=== PATIENT | female | born 1965 | race African-American/Black ===

== ENCOUNTER 2017-01-25 08:42 | Inpatient (IN) | payer OTHER ==
[2017-01-25 11:49] VITALS: BMI 24.2
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
[2017-01-25] MEDS ORDERED: guaiFENesin/D-METHORPHAN HB 10 ML UNIT-DOSE CUPS PO PRN (13:13)
[2017-01-25] MEDS ORDERED: ACETAMINOPHEN 325 MG TABLET (FP) PO PRN (13:13)
[2017-01-25] MEDS ORDERED: chlordiazePOXIDE HCL 25 MG CAPSULE PO PRN (13:13)
[2017-01-25] MEDS ORDERED: hydrOXYzine PAMOATE 50 MG CAPSULE (FP) PO PRN (13:13)
[2017-01-25] MEDS ORDERED: MAGNESIUM HYDROX 2400MG/30ML ORAL SUSPENSION 30 ML CUP PO PRN (13:13)
[2017-01-25] MEDS ORDERED: MAGNESIUM CITRATE 300 ML BOTTLE PO PRN (13:13)
[2017-01-25] MEDS ORDERED: diphenhydrAMINE HCL 50 MG CAPSULE PO PRN (13:13)
[2017-01-25] MEDS ORDERED: IBUPROFEN 400 MG TABLET (FP) PO PRN (13:13)
[2017-01-25] MEDS ORDERED: LOPERAMIDE HCL 2 MG CAPSULE PO PRN (13:13)
[2017-01-25] MEDS ORDERED: P-EPHED 60MG/TRIPROLIDI 2.5MG TABLET PO PRN (13:13)
[2017-01-25] MEDS ORDERED: MENTHOL/PHENOL 1 EACH UD MM PRN (13:13)
[2017-01-25] MEDS ORDERED: MAG HYDROX/AL HYDROX/SIMETH 30 ML UNIT-DOSE CUP PO PRN (13:13)
[2017-01-25] MEDS ORDERED: ALBUTEROL SO4 6.7 GM HFA INHALER IH PRN (13:16)
[2017-01-25] MEDS ORDERED: NAPROXEN 500 MG TABLET (FP) PO PRN (13:16)
[2017-01-25] MEDS ORDERED: ONDANSETRON *ODT* 4 MG TABLET SL PRN (13:18)
[2017-01-25] MEDS ORDERED: chlordiazePOXIDE HCL 25 MG CAPSULE PO ONE (14:04)
[2017-01-25] MEDS ORDERED: TRIMETHOBENZAMIDE HCL 200MG/2ML INJ IM ONE (14:06)
[2017-01-25] MEDS: chlordiazePOXIDE HCL 25 MG CAPSULE PO SCH ×2 (18:45→22:12)
[2017-01-25 20:57] LABS: URINE APPEARANCE CLEAR; URINE BILIRUBIN NEGATIVE (NEGATIVE); URINE COLOR YELLOW; URINE GLUCOSE (UA) NEGATIVE (NEGATIVE); URINE KETONE TRACE (NEGATIVE); URINE LEUK ESTERASE NEGATIVE (NEGATIVE); URINE NITRITE NEGATIVE (NEGATIVE); URINE UROBILINOGEN NEGATIVE E.U./dl (0.2-1.0)
[2017-01-25 21:06] LABS: URINE BLOOD 1+ (NEGATIVE); URINE PROTEIN 1+ (NEGATIVE)
[2017-01-25 21:14] LABS: URINE HYALINE CAST 3 /lpf; URINE RBC <1 /hpf (0-3); URINE WBC 3 /hpf (3-5)
[2017-01-25] MEDS: THIAMINE HCL 100 MG TABLET (FP) PO SCH (22:12)
[2017-01-26] MEDS: chlordiazePOXIDE HCL 25 MG CAPSULE PO SCH ×4 (05:35→22:21)
--- NOTE | 2017-01-26 09:23 | EKG ---
Test Reason : Blood Pressure : / mmHG Vent. Rate : 108 BPM Atrial Rate : 108 BPM P-R Int : 130 ms QRS Dur : 078 ms QT Int : 348 ms P-R-T Axes : 073 065 061 degrees QTc Int : 466 ms SINUS TACHYCARDIA RIGHT ATRIAL ENLARGEMENT SEPTAL INFARCT , AGE UNDETERMINED ABNORMAL ECG NO PREVIOUS ECGS AVAILABLE Confirmed by DENISA SCHNEIDER MD ([id number]) on 01/26/2017 9:23:05 AM Referred By: Derick Garcia Confirmed By:DENISA SCHNEIDER MD
[2017-01-26 09:50] LABS: MCH 34.6 pg (25.7-33.7); MCHC 34.3 g/dl (32.0-36.0); MEAN CELL VOLUME 100.9 fl (80-96); MEAN PLT VOLUME 8.3 fl (7.5-11.1); PLATELET COUNT 309 K/MM3 (134-434); RDW 13.1 % (11.6-15.6); WHITE BLOOD COUNT 4.9 K/mm3 (4.0-10.0)
--- NOTE | 2017-01-26 09:59 | PN ---
S CIWA - CIWA Score Nausea/Vomitin Muscle Tremors: 3 Anxiety: 3 Agitation: 3 Paroxysmal Sweats: 1-Minimal Palms Moist Orientation: 0-Oriented Tacttile Disturbances: 1-Very Mild Itch/Numbness Auditory Disturbances: 1-Very Mild Visual Disturbances: 1-Very Mild Sensitivity Headache: 2-Mild CIWA-Ar Total Score: 18 BHS Progress Note (SOAP) Subjective: ALERT,IRRITABLE,ANXIOUS,INTERRUPTED TREMOR,PAIN IN THE BODY AND BACK Objective: 01/26/17 09:57 Vital Signs Temperature 99.0 F 01/26/17 09:39 Pulse Rate 116 H 01/26/17 09:39 Respiratory Rate 16 01/26/17 09:39 Blood Pressure 116/77 01/26/17 09:39 O2 Sat by Pulse Oximetry (%) EKG SINUS TACHYCARDIA 107/MIN Laboratory Last Values Urine Color Yellow 01/25/17 14:00 Urine Appearance Clear 01/25/17 14:00 Urine pH 5.0 (5.0-8.0) D 01/25/17 14:00 Ur Specific [place] 1.013 (1.001-1.035) 01/25/17 14:00 Urine Protein 1+ (NEGATIVE) H 01/25/17 14:00 Urine Glucose (UA) Negative (NEGATIVE) 01/25/17 14:00 Urine Ketones Trace (NEGATIVE) H 01/25/17 14:00 Urine Blood 1+ (NEGATIVE) H 01/25/17 14:00 Urine Nitrite Negative (NEGATIVE) 01/25/17 14:00 Urine Bilirubin Negative (NEGATIVE) 01/25/17 14:00 Urine Urobilinogen Negative E.U./dl (0.2-1.0) 01/25/17 14:00 Ur Leukocyte Esterase Negative (NEGATIVE) 01/25/17 14:00 Urine RBC <1 /hpf (0-3) 01/25/17 14:00 Urine WBC 3 /hpf (3-5) 01/25/17 14:00 Ur Epithelial Cells Few /hpf (FEW) 01/25/17 14:00 Hyaline Casts 3 /lpf 01/25/17 14:00 LABS PENDING NO CHEST PAIN,NO SOB,NO DIZZINESS Assessment: 01/26/17 09:58 WITHDRAWAL SYMPTOM Plan: CONTINUE DETOX
[2017-01-26] MEDS: PANTOPRAZOLE 20 MG TABLET (FP) PO SCH (10:11)
[2017-01-26] MEDS: PRENATAL VITAMINS W/ FOLIC ACID TABLET (FP) PO SCH (10:11)
[2017-01-26] MEDS: NICOTINE 21 MG/24 HOURS TOPICAL PATCH TD SCH (10:12)
[2017-01-26 10:17] LABS: ALBUMIN 4.4 g/dl (3.4-5.0); ANION GAP 16 (8-16); CALCIUM 9.4 mg/dL (8.5-10.1); CO2 27 mmol/L (21-32); GLUCOSE,RANDOM 68 mg/dL (74-106); SGOT/AST 109 U/L (15-37); SGPT/ALT 48 U/L (12-78)
[2017-01-26 10:21] LABS: ALK PHOS 180 U/L (45-117); BILIRUBIN,TOTAL 0.8 mg/dL (0.2-1.0); COCKROFT - GAULT 100.9715; CREATININE 0.7 mg/dL (0.55-1.02); TOT PROT 8.2 g/dl (6.4-8.2)
--- NOTE | 2017-01-26 15:53 | CONSULT ---
[facility] Psychiatric Consult - Data Date of interview: 01/26/17 Admission source: [facility] Identifying data: Readmission to [facility] for this 51 y/o AA female seeking detox treatment for alcohol,cocaine and marijuana dependence.Patient is ,a mother of one,homeless,unemployed and supported on SSI benefits. Substance Abuse History: - Smoking Cessation. Smoking history: Current every day smoker. Have you smoked in the past 12 months: Yes. Aproximately how many cigarettes per day: 10. Cigars Per Day: 0. Hx Chewing Tobacco Use: No. Initiated information on smoking cessation: Yes. 'Breaking Loose' booklet given : 01/25/17. - Substance & Tx. History. Hx Alcohol Use: Yes. Hx Substance Use : Yes. Substance Use Type: Alcohol, Cocaine, Marijuana. - Substances Abused. Alcohol. Route: Oral. Frequency: Daily. Amount used: 10-15 BEERS. Age of first use: 10. Date of Last Use: 01/25/17. Crack. Route: Smoking. Frequency: Daily. Amount used: $50. Age of first use: 20. Date of Last Use: 01/24/17. Marijuana/Hashish. Route: Smoking. Frequency: 1-2 times per week. Amount used: 1 BLUNT. Age of first use: 12. Date of Last Use: . Confirmed by patient. Medical History: Emphysema,COPD,osteoarthritis,GERD,hypercholesterolemia,and a history of orthosurgery in 2001 (fracture of both ankles due to a fall).Patient has an additional history of surgery for fracture of right mandible (2009). Psychiatric History: History of multiple psychiatric hospitalizations ([facility]).Diagnosed with Schizophrenia.Prescribed risperdal 0.5 mg/day + seroquel 300 mg/hs + zoloft 150 mg/day (confirmed with pharmacist @ [facility] at [phone];last filled script was on 12/14/16) .Ms Mcdonnell used to be followed at the [facility] clinic.She is currently expecting re-assignment to another clinician.Remote history of suicide attempt via self-mutilation.Off her psychotroipc medications over one week (ran out of supply).Eager to resume medications. Physical/Sexual Abuse/Trauma History: Patient denies. Additional Comment: Urine Drug Screen Results: THC-Marijuana, HILARIO-Cocaine.Noted. Mental Status Exam - Mental Status Exam Alert and Oriented to: Time, Place, Person Cognitive Function: Good Patient Appearance: Well Groomed Mood: Anxious, Apprehensive, Hopeful Affect: Mood Congruent Patient Behavior: Fatigued, Appropriate, Cooperative Speech Pattern: Clear, Appropriate Voice Loudness: Normal Thought Process: Goal Oriented Thought Disorder: Not Present Hallucinations: Denies Suicidal Ideation: Denies Homicidal Ideation: Denies Insight/Judgement: Fair Sleep: Poorly, Difficulty falling asleep Appetite: Good Gait/Station: Other (needs a cane for ambulation.Heavy limp) Psychiatric Findings - Problem List ([place] 1, 2,3) (1) Alcohol dependence with uncomplicated withdrawal Current Visit: Yes Status: Acute (2) Nicotine dependence Current Visit: Yes Status: Acute Qualifiers: Nicotine product type: cigarettes Substance use status: uncomplicated Qualified Code(s): F17.210 - Nicotine dependence, cigarettes, uncomplicated (3) Cocaine dependence Current Visit: Yes Status: Acute (4) Schizophrenia Current Visit: Yes Status: Chronic (5) COPD (chronic obstructive pulmonary disease) Current Visit: Yes Status: Chronic Qualifiers: COPD type: unspecified COPD Qualified Code(s): J44.9 - Chronic obstructive pulmonary disease, unspecified (6) GERD (gastroesophageal reflux disease) Current Visit: Yes Status: Chronic Qualifiers: Esophagitis presence: without esophagitis Qualified Code(s): K21.9 - Gastro-esophageal reflux disease without esophagitis (7) Insomnia Current Visit: Yes Status: Acute - Initial Treatment Plan Initial Treatment Plan: Psychoeducation.Detoxification.Medications resumed : seroquel 200 mg po hs (reduced) + risperdal 0.5 mg po daily + zoloft 100 mgpo daily.Side effects/benefits of each medication are discussed with patient.Made aware of risk of EPS (akathisia,akinesia,dystonias,dyskinesias),metabolic syndrome,galactorrhea,gynecomastia,decreased libido and suicidal ideation.No history of adverse effects from these drugs according to self-report.Patient agrees with careplan.Observation.Prescriptions electronically sent to [facility] located at [address] [place] [address].
[2017-01-26] MEDS: THIAMINE HCL 100 MG TABLET (FP) PO SCH (22:21)
[2017-01-26] MEDS: QUEtiapine FUMARATE 200 MG TABLET PO SCH (22:21)
[2017-01-27] MEDS: chlordiazePOXIDE HCL 25 MG CAPSULE PO SCH ×2 (06:54→10:24)
[2017-01-27] MEDS ORDERED: CYCLOBENZAPRINE HCL 10 MG TABLET (FP) PO PRN (10:12)
[2017-01-27] MEDS: PRENATAL VITAMINS W/ FOLIC ACID TABLET (FP) PO SCH (10:23)
[2017-01-27] MEDS: SERTRALINE HCL 50 MG TABLET (FP) PO SCH (10:23)
[2017-01-27] MEDS: risperiDONE 0.5 MG TABLET (FP) PO SCH (10:24)
[2017-01-27] MEDS: PANTOPRAZOLE 20 MG TABLET (FP) PO SCH (10:24)
[2017-01-27] MEDS: NICOTINE 21 MG/24 HOURS TOPICAL PATCH TD SCH (10:25)
--- NOTE | 2017-01-27 14:20 | PN ---
S CIWA - CIWA Score Nausea/Vomitin Muscle Tremors: 4-Moderate,w/Arms Extend Anxiety: 3 Agitation: 2 Paroxysmal Sweats: 4-Forehead w/Sweat Beads Orientation: 0-Oriented Tacttile Disturbances: 2-Mild Itch/Numbness/Burn Auditory Disturbances: 0-None Visual Disturbances: 2-Mild Sensitivity Headache: 0-None Present CIWA-Ar Total Score: 20 BHS Progress Note (SOAP) Subjective: Nausea, Tremors, Body Aches, Sweating. Objective: PT. A & O X3, OBSERVED AMBULATING ON UNIT WITH CANE. 01/27/17 14:18 Vital Signs Temperature 96.4 F L 01/27/17 14:09 Pulse Rate 94 H 01/27/17 14:09 Respiratory Rate 16 01/27/17 14:09 Blood Pressure 113/64 01/27/17 14:09 O2 Sat by Pulse Oximetry (%) Laboratory Last Values WBC 4.9 K/mm3 (4.0-10.0) 01/26/17 06:00 RBC 4.12 M/mm3 (3.60-5.2) 01/26/17 06:00 Hgb 14.3 GM/dL (10.7-15.3) D 01/26/17 06:00 Hct 41.6 % (32.4-45.2) 01/26/17 06:00 MCV 100.9 fl (80-96) H 01/26/17 06:00 MCHC 34.3 g/dl (32.0-36.0) 01/26/17 06:00 RDW 13.1 % (11.6-15.6) 01/26/17 06:00 Plt Count 309 K/MM3 (134-434) 01/26/17 06:00 MPV 8.3 fl (7.5-11.1) 01/26/17 06:00 Sodium 136 mmol/L (136-145) 01/26/17 06:00 Potassium 3.9 mmol/L (3.5-5.1) 01/26/17 06:00 Chloride 93 mmol/L (98-107) L D 01/26/17 06:00 Carbon Dioxide 27 mmol/L (21-32) 01/26/17 06:00 Anion Gap 16 (8-16) 01/26/17 06:00 BUN 7 mg/dL (7-18) D 01/26/17 06:00 Creatinine 0.7 mg/dL (0.55-1.02) 01/26/17 06:00 Creat Clearance w eGFR > 60 (>60) 01/26/17 06:00 Random Glucose 68 mg/dL (74-106) L 01/26/17 06:00 Calcium 9.4 mg/dL (8.5-10.1) 01/26/17 06:00 Total Bilirubin 0.8 mg/dL (0.2-1.0) D 01/26/17 06:00 AST 109 U/L (15-37) H D 01/26/17 06:00 ALT 48 U/L (12-78) D 01/26/17 06:00 Alkaline Phosphatase 180 U/L (45-117) H D 01/26/17 06:00 Total Protein 8.2 g/dl (6.4-8.2) D 01/26/17 06:00 Albumin 4.4 g/dl (3.4-5.0) D 01/26/17 06:00 Urine Color Yellow 01/25/17 14:00 Urine Appearance Clear 01/25/17 14:00 Urine pH 5.0 (5.0-8.0) D 01/25/17 14:00 Ur Specific [place] 1.013 (1.001-1.035) 01/25/17 14:00 Urine Protein 1+ (NEGATIVE) H 01/25/17 14:00 Urine Glucose (UA) Negative (NEGATIVE) 01/25/17 14:00 Urine Ketones Trace (NEGATIVE) H 01/25/17 14:00 Urine Blood 1+ (NEGATIVE) H 01/25/17 14:00 Urine Nitrite Negative (NEGATIVE) 01/25/17 14:00 Urine Bilirubin Negative (NEGATIVE) 01/25/17 14:00 Urine Urobilinogen Negative E.U./dl (0.2-1.0) 01/25/17 14:00 Ur Leukocyte Esterase Negative (NEGATIVE) 01/25/17 14:00 Urine RBC <1 /hpf (0-3) 01/25/17 14:00 Urine WBC 3 /hpf (3-5) 01/25/17 14:00 Ur Epithelial Cells Few /hpf (FEW) 01/25/17 14:00 Hyaline Casts 3 /lpf 01/25/17 14:00 RPR Titer Nonreactive (NONREACTIVE) 01/26/17 06:00 LABS NOTED. Assessment: 01/27/17 14:19 WITHDRAWAL SYMPTOMS. Plan: CONTINUE DETOX. ADVISED PATIENT TO FOLLOW-UP WITH INSPECTOR SET UP AND LAY OUT / REHAB MEDICAL PROVIDER AFTER DISCHARGE FROM DETOX FOR GENERAL MEDICAL ASSESSMENT AND FOR ABNORMAL ADMISSION LAB VALUES.
[2017-01-27] MEDS: chlordiazePOXIDE 5 MG CAPSULE PO SCH ×2 (17:43→22:27)
[2017-01-27] MEDS: QUEtiapine FUMARATE 200 MG TABLET PO SCH (22:27)
[2017-01-27] MEDS: THIAMINE HCL 100 MG TABLET (FP) PO SCH (22:27)
[2017-01-28] MEDS: chlordiazePOXIDE 5 MG CAPSULE PO SCH ×2 (05:56→10:23)
[2017-01-28] MEDS: NICOTINE 21 MG/24 HOURS TOPICAL PATCH TD SCH (10:22)
[2017-01-28] MEDS: PANTOPRAZOLE 20 MG TABLET (FP) PO SCH (10:22)
[2017-01-28] MEDS: SERTRALINE HCL 50 MG TABLET (FP) PO SCH (10:22)
[2017-01-28] MEDS: risperiDONE 0.5 MG TABLET (FP) PO SCH (10:22)
[2017-01-28] MEDS: PRENATAL VITAMINS W/ FOLIC ACID TABLET (FP) PO SCH (10:22)
--- NOTE | 2017-01-28 13:54 | PN ---
BHS Progress Note (SOAP) Subjective: Anxious, sweating, interrupted sleep, nausea Objective: 01/28/17 13:51 Last Vital Signs Temp Pulse Resp BP Pulse Ox 97.2 F L 88 18 133/98 01/28/17 13:48 01/28/17 13:48 01/28/17 13:48 01/28/17 13:48 Laboratory Tests 01/25/17 01/26/17 01/26/17 14:00 06:00 06:00 WBC 4.9 RBC 4.12 Hgb 14.3 D Hct 41.6 MCV 100.9 H MCHC 34.3 RDW 13.1 Plt Count 309 MPV 8.3 Sodium 136 Potassium 3.9 Chloride 93 L D Carbon Dioxide 27 Anion Gap 16 BUN 7 D Creatinine 0.7 Creat Clearance w eGFR > 60 Random Glucose 68 L Calcium 9.4 Total Bilirubin 0.8 D AST 109 H D ALT 48 D Alkaline Phosphatase 180 H D Total Protein 8.2 D Albumin 4.4 D Urine Color Yellow Urine Appearance Clear Urine pH 5.0 D Ur Specific [place] 1.013 Urine Protein 1+ H Urine Glucose (UA) Negative Urine Ketones Trace H Urine Blood 1+ H Urine Nitrite Negative Urine Bilirubin Negative Urine Urobilinogen Negative Ur Leukocyte Esterase Negative Urine RBC <1 Urine WBC 3 Ur Epithelial Cells Few Hyaline Casts 3 RPR Titer 01/26/17 06:00 WBC RBC Hgb Hct MCV MCHC RDW Plt Count MPV Sodium Potassium Chloride Carbon Dioxide Anion Gap BUN Creatinine Creat Clearance w eGFR Random Glucose Calcium Total Bilirubin AST ALT Alkaline Phosphatase Total Protein Albumin Urine Color Urine Appearance Urine pH Ur Specific [place] Urine Protein Urine Glucose (UA) Urine Ketones Urine Blood Urine Nitrite Urine Bilirubin Urine Urobilinogen Ur Leukocyte Esterase Urine RBC Urine WBC Ur Epithelial Cells Hyaline Casts RPR Titer Nonreactive Labs noted: UA: 1+ blood, 1+ protein Assessment: 01/28/17 13:52 Withdrawal symptoms Noted with microscopic hematuria and proteinuria Plan: Continue detox Microscopic hematuria and proteinuria: encourage to drink lots of water, repeat UA
[2017-01-28] MEDS: chlordiazePOXIDE HCL 10 MG CAPSULE PO SCH ×2 (18:00→22:16)
[2017-01-28] MEDS: THIAMINE HCL 100 MG TABLET (FP) PO SCH (22:16)
[2017-01-28] MEDS: QUEtiapine FUMARATE 200 MG TABLET PO SCH (22:16)
[2017-01-29] MEDS: chlordiazePOXIDE HCL 10 MG CAPSULE PO SCH ×2 (06:16→10:15)
[2017-01-29 06:36] VITALS: BP 101/60; PULSE 67; TEMP 97.3
--- NOTE | 2017-01-29 08:31 | PN ---
S Progress Note (SOAP) Subjective: ALERT,IRRITABLE,ANXIOUS,INTERRUPTED SLEEP Objective: 01/29/17 08:30 Vital Signs Temperature 97.3 F L 01/29/17 06:35 Pulse Rate 67 01/29/17 06:35 Respiratory Rate 18 01/29/17 06:35 Blood Pressure 101/60 01/29/17 06:35 O2 Sat by Pulse Oximetry (%) Assessment: 01/29/17 08:30 DETOX COMPLETED,NO WITHDRAWAL SYMPTOM Plan: DISCHARGE TODAY,FOLLOW UP WITH AFTER CARE PROGRAM ARRANGEMENT
--- NOTE | 2017-01-29 08:34 | DS ---
[facility] Detox Discharge Summary Admission Date: 01/25/17 Discharge Date: 01/29/17 - History Present History: Alcohol Dependence, Cocaine Dependence Additional Comments: FOLLOW UP WITH AFTER CARE PROGRAM REVELATION ARRANGEMENT Pertinent Past History: GERD COPD NICOTINE DEPENDENCE SCHIZOPHRENIA - Physical Exam Results Vital Signs: Vital Signs Temperature 97.3 F L 01/29/17 06:35 Pulse Rate 67 01/29/17 06:35 Respiratory Rate 18 01/29/17 06:35 Blood Pressure 101/60 01/29/17 06:35 O2 Sat by Pulse Oximetry (%) Pertinent Admission Physical Exam Findings: WITHDRAWAL SYMPTOM - Treatment Hospital Course: Detox Protocol Followed, Detoxed Safely, Responded well, Discharged Condition Good, Rehab Referral Accepted Patient has Accepted a Rehab Referral to: [facility] - Medication Discharge Medications: Ambulatory Orders Sertraline HCl [Zoloft -] 150 mg PO DAILY 30 Days 12/29/14 Quetiapine Fumarate [Seroquel -] 300 mg PO HS #30 tab 08/14/16 Risperidone [Risperdal -] 2 mg PO BID #60 tablet 08/14/16 Albuterol Sulfate Inhaler - [Ventolin Hfa Inhaler -] 2 inh PO Q4H PRN 01/25/17 Naproxen [Naprosyn -] 500 mg PO BID PRN 01/25/17 Omeprazole 20 mg PO DAILY 01/25/17 Quetiapine Fumarate [Seroquel] 300 mg PO HS #30 tablet 01/26/17 Risperidone [Risperdal -] 0.5 mg PO DAILY #30 tablet 01/26/17 Sertraline HCl [Zoloft -] 150 mg PO DAILY #60 tablet 01/26/17 - AMA Did Patient Leave Against Medical Advice: No
== END 2017-01-29 11:50 | disposition home or self-care (01) | DRG 897 ==
LOC: YASAS 08:42 → Y6N 12:29
PROVIDERS: ADMIT Internal Medicine; ATTEND Internal Medicine
PROC: HZ2ZZZZ Detoxification Services for Substance Abuse Treatment (ICD-10-PCS; principal; 2017-01-29)
DX: F10.230 Alcohol dependence with withdrawal, uncomplicated (principal); F14.20 Cocaine dependence, uncomplicated; F17.210 Nicotine dependence, cigarettes, uncomplicated; F20.9 Schizophrenia, unspecified; G47.00 Insomnia, unspecified; J44.9 Chronic obstructive pulmonary disease, unspecified; K21.9 Gastro-esophageal reflux disease without esophagitis
CPT/HCPCS: 36415; 80053; 81003; 81015; 85027; 86593; 93005; 93010